=== PATIENT | male | born 1945 | race Caucasian/White ===

== ENCOUNTER 2023-02-12 12:52 | Emergency (ER) | payer MEDICARE, OTHER ==
[2023-02-12] MEDS ORDERED: DIPH,PERTUS(ACELL)TETVAC-LF 0.5 ML VIAL IM ONE (13:38)
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
[2023-02-12 13:53] VITALS: BP 147/81; PULSE 93; RESP 17; TEMP 98.7
[2023-02-12] MEDS ORDERED: LIDOCAINE 2%-EPI 1:100,000 20 ML VIAL SQ STA (14:40)
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
[2023-02-12] MEDS ORDERED: BACITRACIN OINT 1 EACH PACKET TOPICAL ONE (15:18)
== END 2023-02-12 16:00 | disposition home or self-care (01) ==
LOC: EC 12:52
DX: S01.01XA Laceration without foreign body of scalp, initial encounter (principal); Z91.030 Bee allergy status; Z88.2 Allergy status to sulfonamides; Z88.1 Allergy status to other antibiotic agents; Z91.018 Allergy to other foods; Z88.0 Allergy status to penicillin; Z23 Encounter for immunization; W22.8XXA Striking against or struck by other objects, initial encounter
CPT/HCPCS: 12002; 70450; 72125; 90471; 90715; 99284